=== PATIENT | male | born 1995 | race American Indian/Alaskan Native ===

== ENCOUNTER 2021-02-07 15:06 | Emergency (ER) | payer OTHER ==
[2021-02-07] MEDS ORDERED: IBUPROFEN 800 MG TAB ONE (15:34)
[2021-02-07] MEDS ORDERED: IBUPROFEN 800 MG TAB PO ONE (15:36)
--- NOTE | 2021-02-07 15:40 | Emergency Department Report ---
ED General Adult HPI - General Chief complaint: Extremity Injury, Lower Stated complaint: FOOT LEFT PAINS Time Seen by Provider: 02/07/21 15:35 Source: patient Mode of arrival: Wheelchair Limitations: No Limitations - History of Present Illness Initial comments: 25-year-old -[place] male patient presents with complaints of left ankle pain after a twist injury during a basketball game today. Patient rates his pain as 8/10 in severity and states it worsens with ambulation and movement. He denies any numbness/tingling in his foot or skin changes. He states there is mild swelling but denies any bruising. - Related Data Previous Rx's Medication Instructions Recorded Last Taken Type Naproxen 500 mg PO BID PRN #14 tablet 02/07/21 Unknown Rx Allergies Allergy/AdvReac Type Severity Reaction Status Date / Time No Known Allergies Allergy Unverified 02/07/21 15:32 ED Review of Systems ROS: Stated complaint: FOOT LEFT PAINS Other details as noted in HPI Constitutional: denies: diaphoresis Musculoskeletal: joint swelling, arthralgia Skin: denies: change in color Neurological: denies: numbness, paresthesias ED Past Medical Hx - Past Medical History Previous Medical History?: No - Surgical History Past Surgical History?: No - Social History Smoking Status: Never Smoker - Medications Home Medications: Home Medications Medication Instructions Recorded Confirmed Last Taken Type Naproxen 500 mg PO BID PRN #14 tablet 02/07/21 Unknown Rx ED Physical Exam - General Limitations: No Limitations General appearance: alert, in no apparent distress - Head Head exam: Present: atraumatic, normocephalic - Eye Eye exam: Absent: scleral icterus - Respiratory Respiratory exam: Absent: respiratory distress - Cardiovascular Cardiovascular Exam: Present: regular rate - Extremities Exam Extremities exam: Present: other (Tenderness to palpation noted over left medial ankle without skin changes or bruising noted; normal pedal pulses noted; pain increases with active range of motion; no heel or Achilles tendon pain noted) - Expanded Lower Extremity Exam Left Neuro vascular tendon exam: Present: no vascular compromise. Absent: sensory deficit Gait: Positive: not tested/not observed (Patient in wheelchair) - Neurological Exam Neurological exam: Present: alert, oriented X3 - Psychiatric Psychiatric exam: Present: normal affect, normal mood ED Course Vital Signs 02/07/21 15:32 Temperature 98.3 F Pulse Rate 95 H Respiratory 20 Rate Blood Pressure 141/77 O2 Sat by Pulse 98 Oximetry ED Medical Decision Making - Radiology Data Radiology results: report reviewed LEFT ANKLE 4 VIEW(S) INDICATION / CLINICAL INFORMATION: medial ankle pain after basketball injury COMPARISON: None available. FINDINGS: BONES / JOINT(S): No acute fracture or subluxation. No significant arthritis. SOFT TISSUES: No significant abnormality. ADDITIONAL FINDINGS: None. - Medical Decision Making 25-year-old -[place] male patient presents with complaints of left ankle pain after a twist injury during a basketball game today. Patient rates his pain as 8/10 in severity and states it worsens with ambulation and movement. He denies any numbness/tingling in his foot or skin changes. He states there is mild swelling but denies any bruising. X-rays negative for any acute bony abnormalities. Will treat for ankle sprain with Jerson wrap and crutches. Discussed rice method and follow-up with orthopedics as needed. He is well-appearing, his vitals are within normal limits, he is stable for discharge home. Signs and symptoms that should prompt immediate return to the emergency department in detail with patient who verbalizes understanding. Critical care attestation.: If time is entered above; I have spent that time in minutes in the direct care of this critically ill patient, excluding procedure time. ED Disposition Clinical Impression: Left ankle sprain Qualifiers: Encounter type: initial encounter Involved ligament of ankle: other ligament Qualified Code(s): S93.492A - Sprain of other ligament of left ankle, initial encounter Disposition: TO HOME OR SELFCARE Is pt being admited?: No Condition: Stable Instructions: Ankle Sprain, [id number] Prescriptions: Naproxen 500 mg PO BID PRN #14 tablet PRN Reason: pain Referrals: [facility] [Provider Group] - 3-5 Days Forms: Work/School Release Form(ED)
--- NOTE | 2021-02-07 16:07 | XRay Report ---
LEFT ANKLE 4 VIEW(S) INDICATION / CLINICAL INFORMATION: medial ankle pain after basketball injury COMPARISON: None available. FINDINGS: BONES / JOINT(S): No acute fracture or subluxation. No significant arthritis. SOFT TISSUES: No significant abnormality. ADDITIONAL FINDINGS: None. Signer Name: Ilia Crawford MD Signed: 02/07/2021 4:02 PM Workstation Name: [id number]
[2021-02-07 17:54] VITALS: BP 131/85
== END 2021-02-07 17:56 | disposition home or self-care (01) ==
LOC: ED 15:06
DX: S93.402A Sprain of unspecified ligament of left ankle, initial encounter (principal); Z79.899 Other long term (current) drug therapy; X50.1XXA Overexertion from prolonged static or awkward postures, initial encounter; Y93.67 Activity, basketball; Y92.89 Other specified places as the place of occurrence of the external cause; Y99.8 Other external cause status